=== PATIENT | male | born 1990 | race American Indian/Alaskan Native ===

== ENCOUNTER 2021-12-27 19:59 | Emergency (ER) | payer SELFPAY ==
[2021-12-27 20:48] VITALS: BP 170/94
[2021-12-28] MEDS ORDERED: HYDROcodone/ACETAMINOPHEN 5-325 MG TAB PO STA (02:18)
--- NOTE | 2021-12-28 02:28 | Emergency Department Report ---
ED General Adult HPI - General Chief complaint: Extremity Problem,Nontraumatic Stated complaint: RT FOOT PAIN Time Seen by Provider: 12/28/21 02:18 Source: patient Mode of arrival: Ambulatory Limitations: No Limitations - History of Present Illness Initial comments: 2 31-year-old male who presents emergency department complaining of pain to the right hallux area suspicious of gout attack after having a wound evening of drinking. States he normally takes allopurinol and Indocin for his gout attacks but has relocated here from [place] and yet to follow-up with an established with a primary care provider therefore does not have the medications available. Reports no numbness tingling, no traumatic events. No fever, chills, sweats. No chest pain palpitation no nausea vomiting Location: lower extremity Radiation: non-radiation Quality: aching, dull Consistency: constant Improves with: none Worsens with: none Associated Symptoms: denies: cough, diaphoresis, fever/chills, malaise, syncope, weakness - Related Data Previous Rx's Medication Instructions Recorded Last Taken Type Colchicine [Colcrys] 0.6 mg PO Q1HR PRN #20 tablet 12/28/21 Unknown Rx Indomethacin [Indocin] 25 mg PO Q8H PRN #20 cap 12/28/21 Unknown Rx allopurinoL [Zyloprim] 300 mg PO QDAY #30 tablet 12/28/21 Unknown Rx ED Review of Systems ROS: Stated complaint: RT FOOT PAIN Other details as noted in HPI Comment: All other systems reviewed and negative ED Past Medical Hx - Medications Home Medications: Home Medications Medication Instructions Recorded Confirmed Last Taken Type Colchicine [Colcrys] 0.6 mg PO Q1HR PRN #20 tablet 12/28/21 Unknown Rx Indomethacin [Indocin] 25 mg PO Q8H PRN #20 cap 12/28/21 Unknown Rx allopurinoL [Zyloprim] 300 mg PO QDAY #30 tablet 12/28/21 Unknown Rx ED Physical Exam - General Limitations: No Limitations General appearance: alert, in no apparent distress - Head Head exam: Present: atraumatic, normocephalic - Eye Eye exam: Present: normal appearance - ENT ENT exam: Present: mucous membranes moist - Neck Neck exam: Present: normal inspection - Respiratory Respiratory exam: Present: normal lung sounds bilaterally. Absent: respiratory distress - Cardiovascular Cardiovascular Exam: Present: regular rate, normal rhythm. Absent: systolic murmur, diastolic murmur, rubs, gallop - GI/Abdominal GI/Abdominal exam: Present: soft, normal bowel sounds - Rectal Rectal exam: Present: deferred - Extremities Exam Extremities exam: Present: normal inspection, tenderness - Expanded Lower Extremity Exam Right Foot/Toe exam: Present: tenderness (To the right hallux with palpation some redness and warmth is present. Pain with manipulation of the hallux up and down tristate) Neuro vascular tendon exam: Present: no vascular compromise - Back Exam Back exam: Present: normal inspection. Absent: CVA tenderness (R), CVA tenderness (L) - Neurological Exam Neurological exam: Present: alert, oriented X3 - Psychiatric Psychiatric exam: Present: normal affect, normal mood - Skin Skin exam: Present: warm, dry, intact, normal color. Absent: rash ED Course Vital Signs 12/27/21 20:46 Temperature 98.6 F Pulse Rate 76 Respiratory 20 Rate Blood Pressure 170/94 O2 Sat by Pulse 100 Oximetry Critical care attestation.: If time is entered above; I have spent that time in minutes in the direct care of this critically ill patient, excluding procedure time. ED Disposition Clinical Impression: Gout attack Disposition: HOME / SELF CARE / HOMELESS Is pt being admited?: No Does the pt Need Aspirin: No Condition: Stable Prescriptions: Colchicine [Colcrys] 0.6 mg PO Q1HR PRN #20 tablet PRN Reason: Gout attack Indomethacin [Indocin] 25 mg PO Q8H PRN #20 cap PRN Reason: Gout attack allopurinoL [Zyloprim] 300 mg PO QDAY #30 tablet Referrals: PRIMARY MD KIRAN [Primary Care Provider] - 3-[address] [facility] [Provider Group] - 3-5 Days
== END 2021-12-28 02:50 | disposition home or self-care (01) ==
LOC: ED 19:59 → EDBD 19:59 → ED 12-28 02:50
DX: M10.9 Gout, unspecified (principal)
CPT/HCPCS: 99282